=== PATIENT | male | born 1950 | race Caucasian/White ===

== ENCOUNTER 2017-07-30 13:51 | Inpatient (IN) | payer OTHER ==
[~2017-07-30] VITALS: Ht 167.6 cm; Wt 80.9 kg
--- NOTE | ~2017-07-30 | ST ---
[place], [place] EXERCISE STRESS TEST REPORT NAME: TIMOTHY WHITLOCK UNIT #: [id number] ROOM: 529 DOCTOR: FRIEDA SMITH MD BIRTHDATE: [birth year] DOS: 07/31/2017 LEXISCAN STRESS EKG REFERRING PHYSICIAN: Dr. Giron. INDICATION: Central chest pain. DESCRIPTION OF PROCEDURE: The patient underwent standard protocol Lexiscan stress EKG. The patient's baseline EKG has normal sinus rhythm with nonspecific ST-T wave changes. The patient's baseline heart rate is 69 with blood pressure 144/94. The patient achieved the maximum heart rate of 92 beats per minute with blood pressure 148/80. No chest pain was noted, no arrhythmias and no ischemic EKG changes. Please see separate report for perfusion scan result. FRIEDA SMITH MD CM:STRESS:EXERCISE STRESS TEST REPORT [id number] FRIEDA SMITH MD
[2017-07-30 13:51] VITALS: BP 174/106
[2017-07-30 14:19] LABS: BASO # 0.1 10*3/uL (0.0-0.1); BASO % 0.9 % (0.0-1.0); EOS # 0.2 10*3/uL (0.0-0.4); EOS % 1.8 % (1.0-4.0); HEMATOCRIT 58.1 % (42.0-52.0); LYMPH # 1.7 10*3/uL (1.3-4.4); LYMPH % 18.5 % (27.0-41.0); MEAN CELL VOLUME 94.5 fl (80.0-94.0); MEAN CORPUSCULAR HGB 33.7 pg (27.0-31.0); MEAN CORPUSCULAR HGB CONC 35.6 g/dl (33.0-37.0); MEAN PLATELET VOLUME 10.8 fl (9.6-12.3); MONO # 0.6 10*3/uL (0.1-1.0); MONO % 6.8 % (3.0-9.0); NEUT # 6.6 10*3/uL (2.3-7.9); NEUT % 71.7 % (47.0-73.0); PLATELET COUNT AUTOMATED 172 10*3/uL (130-400); RED BLOOD COUNT 6.15 10*6/uL (4.50-5.90); RED CELL DISTRI WIDTH 13.2 % (0-14.5); WHITE BLOOD COUNT 9.2 10*3/uL (4.8-10.8)
--- NOTE | 2017-07-30 14:21 | NUR ---
DE. GONSALEZ AWARE OF HGN 20.7
[2017-07-30 14:23] LABS: HEMOGLOBIN 20.7 g/dl (14.0-18.0)
[2017-07-30 14:34] LABS: ALBUMIN 4.1 gm/dl (3.1-4.5); ALKALINE PHOSPHATASE 82 U/L (45-117); BUN 11 mg/dl (7-24); CHLORIDE 107 mmol/L (98-107); LIPASE 113 U/L (73-393); POTASSIUM 3.9 mmol/L (3.5-5.1); SGOT/AST 18 IU/L (3-35); SGPT/ALT 19 U/L (12-78); SODIUM 139 mmol/L (136-145); TOTAL PROTEIN 8.1 gm/dL (6.4-8.2)
[2017-07-30 14:38] LABS: TROPONIN I < 0.015 ng/ml (<0.045)
[2017-07-30 15:07] LABS: ACT PARTIAL THROMBO TIME 27.9 SECONDS (20.8-31.5)
--- NOTE | 2017-07-30 15:09 | NUR ---
pt resting quietky, no distress noted, pt denies any chest pain or sob. nsr via monitoring tech in the 60's. will continue to monitor.
[2017-07-30 15:58] VITALS: BP 150/85
--- NOTE | 2017-07-30 16:14 | NUR ---
A 67, admitted to 5E, under the services of APPLE Roper DO with a diagnosis of CHEST PAIN. Chief complaint is CHEST PAIN. Patient arrived via ambulatory from ER. Monitor applied. Initial assessment completed. Vital signs taken and recorded. APPLE ROPER DO notified of admission to the unit. Orders received. See assessment for past medical history, medications and allergies. Patient and/or family oriented to unit. visitation policy reviewed. Clothing/patient valuable form completed. TEJA SARKAR
[2017-07-30] MEDS ORDERED: LOSARTAN POTAS100 M1 PO (16:45)
[2017-07-30] MEDS ORDERED: ASPIRIN ADULT L81 M1 PO (16:45)
[2017-07-30] MEDS ORDERED: NORVASC5 MG PO (16:46)
--- NOTE | 2017-07-30 16:46 | NUR ---
PT REFUSED FLU SHOT ON ADMISSION, WILL RECONSIDER ON DISCHARGE
--- NOTE | 2017-07-30 17:32 | NUR ---
CONSULT CALLED TO , NEW ORDER TO KEEP PT NPO AFTER MN, AND CARDIOLOGY WILL SEE IN THE AM
[2017-07-30 20:00] VITALS: BP 167/94
[2017-07-30 22:01] VITALS: BP 144/84
[2017-07-31] VITALS: BP 115/59; BP 115/74
--- NOTE | 2017-07-31 03:10 | NUR ---
24 HR chart check completed.
[2017-07-31 06:37] LABS: BASO # 0.1 10*3/uL (0.0-0.1); BASO % 0.9 % (0.0-1.0); EOS # 0.4 10*3/uL (0.0-0.4); EOS % 4.4 % (1.0-4.0); HEMATOCRIT 55.9 % (42.0-52.0); HEMOGLOBIN 19.5 g/dl (14.0-18.0); LYMPH # 1.9 10*3/uL (1.3-4.4); MEAN CELL VOLUME 93.6 fl (80.0-94.0); MEAN CORPUSCULAR HGB 32.7 pg (27.0-31.0); MEAN CORPUSCULAR HGB CONC 34.9 g/dl (33.0-37.0); MEAN PLATELET VOLUME 11.5 fl (9.6-12.3); MONO # 0.6 10*3/uL (0.1-1.0); MONO % 6.8 % (3.0-9.0); NEUT # 5.7 10*3/uL (2.3-7.9); NEUT % 65.7 % (47.0-73.0); PLATELET COUNT AUTOMATED 163 10*3/uL (130-400); RED BLOOD COUNT 5.97 10*6/uL (4.50-5.90); WHITE BLOOD COUNT 8.6 10*3/uL (4.8-10.8)
[2017-07-31 07:04] LABS: BUN 12 mg/dl (7-24); CHLORIDE 106 mmol/L (98-107); CHOLESTEROL 136 mg/dL (<200); CREATININE 0.82 mg/dL (0.70-1.30); HDL CHOLESTEROL 47 mg/dl (40-60); LDL CHOLESTEROL 73 mg/dL (9-159); PHOSPHOROUS 3.3 mg/dL (2.5-4.9); POTASSIUM 3.7 mmol/L (3.5-5.1); SODIUM 140 mmol/L (136-145); TRIGLYCERIDES 79 mg/dl (<150); VLDL CHOLESTEROL 16 mg/dL (6-40)
--- NOTE | 2017-07-31 07:30 | NUR ---
ASSUMED CARE OF PT AT THIS TIME, RESPS EASY AND NONLABORED CALL LIGHT WITH IN REACH
[2017-07-31 07:53] LABS: VITAMIN D, 25-HYDROXY 24.4 ng/mL (30-100)
[2017-07-31 08:00] VITALS: BP 159/89
--- NOTE | 2017-07-31 08:30 | NUR ---
Business Management Specialist in to talk to patient. Patient states lives at home with his . There are 0 steps in the home. Physician: Dr. Cain Sparks Pharmacy: print all scripts, he gets them filled by the [place] Home health services: none Patient's level of ADLs: INDEPENDENT Patient has working utilities: yes DME: nebulizer Follow-up physician's appointment after d/c: will be made by hospitalist nurse director upon discharge Does patient want to access PORTAL?: no Discharge plan discussed with patient. He lives at home with his . He drives and is independent in his ADLs and ambulation. When medically stable he will be discharged to home. GRISELDA EPPS
--- NOTE | 2017-07-31 12:05 | NUR ---
INFORMED CONSENT SIGNED FOR LEXISCAN STRESS TEST WITH DR. SMIHT. RESTING EKG NSR, HR 69, BP 144/94. PULSE OX 100% AND LUNGS CLEAR. COMPLETED ONE MINUTE OF LEXISCAN PROTOCOL RECEIVING LEXISCAN 0.4MG OVER 10 SECONDS. NO ARRHYTHMIAS OR ST CHANGES NOTED. PT C/O WARM FEELING. LAST RECOVERY HR 85, BP 136/80. WAITING NUCLEAR SCANNING IN STABLE CONDITION.
[2017-07-31] MEDS ORDERED: VITAMIN D-32000 UNIT PO (16:28)
--- NOTE | 2017-07-31 16:48 | NUR ---
Discharge instructions reviewed with patient/family. Patient receptive and verbalizes understanding. Follow-up care arranged. Written instructions given to patient/family. TEJA SARKAR
== END 2017-07-31 16:48 | disposition home or self-care (01) | DRG 391 ==
LOC: ED 13:51 → 5E 15:27 → EDHOLD 15:27 → 5E 15:37
PROVIDERS: Emergency Medicine; Internal Medicine Nephrology; ADMIT Internal Medicine
PROC: 4A02XM4 Measurement of Cardiac Total Activity, External Approach (ICD-10-PCS; principal; 2017-07-31)
PROC: 3E073KZ Introduction of Other Diagnostic Substance into Coronary Artery, Percutaneous Approach (ICD-10-PCS; principal; 2017-07-31)
DX: K21.9 Gastro-esophageal reflux disease without esophagitis (principal); J18.9 Pneumonia, unspecified organism; J44.0 Chronic obstructive pulmonary disease with (acute) lower respiratory infection; I10 Essential (primary) hypertension; R07.89 Other chest pain; F17.200 Nicotine dependence, unspecified, uncomplicated; D45 Polycythemia vera; M15.9 Polyosteoarthritis, unspecified; Z79.82 Long term (current) use of aspirin; Z88.5 Allergy status to narcotic agent; Z79.899 Other long term (current) drug therapy; Z71.6 Tobacco abuse counseling; Z82.49 Family history of ischemic heart disease and other diseases of the circulatory system; Z72.89 Other problems related to lifestyle; Z80.0 Family history of malignant neoplasm of digestive organs

== ENCOUNTER → 2017-11-19 | Outpatient (CLI) | payer OTHER ==
[~2017-11-19] MED LIST: ASPIRIN ADULT L81 M1 PO; LOSARTAN POTAS100 M1 PO; NORVASC5 MG PO; VITAMIN D-32000 UNIT PO
== END | disposition home or self-care (01) ==
LOC: RESCLI 00:33
DX: D45 Polycythemia vera (principal); I10 Essential (primary) hypertension; E55.9 Vitamin D deficiency, unspecified; J44.9 Chronic obstructive pulmonary disease, unspecified; K21.9 Gastro-esophageal reflux disease without esophagitis; F17.210 Nicotine dependence, cigarettes, uncomplicated; Z71.6 Tobacco abuse counseling

== ENCOUNTER → 2017-12-17 | Outpatient (CLI) | payer OTHER | END | disposition home or self-care (01) | LOC: RESCLI 01:51 | DX: I10 Essential (primary) hypertension (principal); D45 Polycythemia vera ==

== ENCOUNTER → 2018-01-09 | Outpatient (CLI) | payer OTHER ==
[2018-01-09 10:08] LABS: BASO # 0.1 10*3/uL (0.0-0.1); BASO % 0.8 % (0.0-1.0); EOS # 0.3 10*3/uL (0.0-0.4); EOS % 5.1 % (1.0-4.0); HEMATOCRIT 57.8 % (42.0-52.0); HEMOGLOBIN 19.8 g/dl (14.0-18.0); LYMPH # 1.5 10*3/uL (1.3-4.4); LYMPH % 22.5 % (27.0-41.0); MEAN CELL VOLUME 96.7 fl (80.0-94.0); MEAN CORPUSCULAR HGB 33.1 pg (27.0-31.0); MEAN CORPUSCULAR HGB CONC 34.3 g/dl (33.0-37.0); MEAN PLATELET VOLUME 10.8 fl (9.6-12.3); MONO # 0.5 10*3/uL (0.1-1.0); MONO % 6.9 % (3.0-9.0); NEUT # 4.2 10*3/uL (2.3-7.9); NEUT % 64.2 % (47.0-73.0); PLATELET COUNT AUTOMATED 203 10*3/uL (130-400); RED BLOOD COUNT 5.98 10*6/uL (4.50-5.90); RED CELL DISTRI WIDTH 13.8 % (0-14.5); WHITE BLOOD COUNT 6.5 10*3/uL (4.8-10.8)
[2018-01-09 11:20] LABS: VITAMIN D, 25-HYDROXY 33.6 ng/mL (30-100)
[2018-01-09 11:21] LABS: FERRITIN 39.7 ng/mL (22.0-322.0)
== END | disposition home or self-care (01) ==
LOC: LAB 09:45
PROVIDERS: Student in an Organized Health Care Education/Training Program
DX: D45 Polycythemia vera (principal); E55.9 Vitamin D deficiency, unspecified

== ENCOUNTER → 2018-01-15 | Outpatient (CLI) | payer OTHER | END | disposition home or self-care (01) | LOC: RESCLI 04:30 | DX: I10 Essential (primary) hypertension (principal); D45 Polycythemia vera; E55.9 Vitamin D deficiency, unspecified; J44.9 Chronic obstructive pulmonary disease, unspecified; K21.9 Gastro-esophageal reflux disease without esophagitis; F51.02 Adjustment insomnia; F17.210 Nicotine dependence, cigarettes, uncomplicated; Z71.6 Tobacco abuse counseling ==

== ENCOUNTER → 2018-01-17 | Outpatient (CLI) | payer OTHER ==
[2018-01-17 08:49] VITALS: BP 105/74
[2018-01-17 09:15] VITALS: BP 76/30
[2018-01-17 09:28] VITALS: BP 109/80
== END | disposition home or self-care (01) ==
LOC: PHLEB 03:41
DX: D45 Polycythemia vera (principal)

== ENCOUNTER → 2018-03-22 | Outpatient (CLI) | payer OTHER | END | disposition home or self-care (01) | LOC: RESCLI 02:29 | DX: I10 Essential (primary) hypertension (principal); D45 Polycythemia vera; F51.02 Adjustment insomnia; E55.9 Vitamin D deficiency, unspecified; J44.9 Chronic obstructive pulmonary disease, unspecified; K21.9 Gastro-esophageal reflux disease without esophagitis; Z72.0 Tobacco use; Z79.899 Other long term (current) drug therapy; Z88.8 Allergy status to other drugs, medicaments and biological substances; Z79.82 Long term (current) use of aspirin; Z71.6 Tobacco abuse counseling ==

== ENCOUNTER → 2018-03-27 | Outpatient (CLI) | payer OTHER ==
[2018-03-27 10:53] LABS: BASO % 0.7 % (0.0-1.0); EOS # 0.2 10*3/uL (0.0-0.4); EOS % 3.9 % (1.0-4.0); HEMATOCRIT 56.7 % (42.0-52.0); HEMOGLOBIN 19.3 g/dl (14.0-18.0); LYMPH # 1.2 10*3/uL (1.3-4.4); LYMPH % 20.2 % (27.0-41.0); MEAN CELL VOLUME 95.6 fl (80.0-94.0); MEAN CORPUSCULAR HGB 32.5 pg (27.0-31.0); MEAN PLATELET VOLUME 11.6 fl (9.6-12.3); MONO # 0.5 10*3/uL (0.1-1.0); MONO % 8.1 % (3.0-9.0); NEUT # 3.9 10*3/uL (2.3-7.9); NEUT % 66.9 % (47.0-73.0); PLATELET COUNT AUTOMATED 165 10*3/uL (130-400); RED BLOOD COUNT 5.93 10*6/uL (4.50-5.90); RED CELL DISTRI WIDTH 13.2 % (0-14.5); WHITE BLOOD COUNT 5.8 10*3/uL (4.8-10.8)
[2018-03-27 11:58] LABS: FERRITIN 45.9 ng/mL (22.0-322.0)
== END | disposition home or self-care (01) ==
LOC: LAB 09:52
PROVIDERS: Student in an Organized Health Care Education/Training Program
DX: E55.9 Vitamin D deficiency, unspecified (principal); D45 Polycythemia vera

== ENCOUNTER → 2018-05-01 | Outpatient (CLI) | payer OTHER | END | disposition home or self-care (01) | LOC: US 09:48 | DX: I65.23 Occlusion and stenosis of bilateral carotid arteries (principal); E78.5 Hyperlipidemia, unspecified; F17.210 Nicotine dependence, cigarettes, uncomplicated ==

== ENCOUNTER → 2018-05-03 | Outpatient (CLI) | payer OTHER ==
[2018-05-03 10:51] LABS: HEMATOCRIT 56.4 % (42.0-52.0); HEMOGLOBIN 19.3 g/dl (14.0-18.0)
== END | disposition home or self-care (01) ==
LOC: RESCLI 10:06
PROVIDERS: Student in an Organized Health Care Education/Training Program
DX: K21.9 Gastro-esophageal reflux disease without esophagitis (principal); J44.9 Chronic obstructive pulmonary disease, unspecified; G47.9 Sleep disorder, unspecified; S91.209A Unspecified open wound of unspecified toe(s) with damage to nail, initial encounter; E55.9 Vitamin D deficiency, unspecified; I10 Essential (primary) hypertension; D45 Polycythemia vera; F17.200 Nicotine dependence, unspecified, uncomplicated; Z71.6 Tobacco abuse counseling; Z79.899 Other long term (current) drug therapy; Z79.82 Long term (current) use of aspirin; Z88.8 Allergy status to other drugs, medicaments and biological substances; X58.XXXA Exposure to other specified factors, initial encounter; Y93.89 Activity, other specified; Y92.89 Other specified places as the place of occurrence of the external cause; Y99.8 Other external cause status

== ENCOUNTER → 2018-05-06 | Outpatient (CLI) | payer OTHER ==
[2018-05-06 09:45] VITALS: BP 174/98
[2018-05-06 10:20] VITALS: BP 166/86
== END | disposition home or self-care (01) ==
LOC: PHLEB 10:00
DX: D45 Polycythemia vera (principal); Z88.5 Allergy status to narcotic agent

== ENCOUNTER → 2018-05-21 | Outpatient (CLI) | payer OTHER | END | disposition home or self-care (01) | LOC: RESCLI 04:17 | DX: I10 Essential (primary) hypertension (principal); J44.9 Chronic obstructive pulmonary disease, unspecified; D45 Polycythemia vera; K21.9 Gastro-esophageal reflux disease without esophagitis; F51.02 Adjustment insomnia; F17.210 Nicotine dependence, cigarettes, uncomplicated; Z71.6 Tobacco abuse counseling; Z79.899 Other long term (current) drug therapy; Z79.82 Long term (current) use of aspirin ==

== ENCOUNTER → 2018-05-28 | Outpatient (CLI) | payer OTHER ==
[2018-05-28 09:30] VITALS: BP 158/97
[2018-05-28 09:52] LABS: HEMATOCRIT 54.7 % (42.0-52.0); HEMOGLOBIN 18.5 g/dl (14.0-18.0)
[2018-05-28 10:15] VITALS: BP 151/87
== END | disposition home or self-care (01) ==
LOC: PHLEB 02:05
PROVIDERS: Student in an Organized Health Care Education/Training Program
DX: D45 Polycythemia vera (principal)

== ENCOUNTER → 2018-06-05 | Outpatient (CLI) | payer OTHER ==
[2018-06-05 09:14] VITALS: BP 143/73
[2018-06-05 09:30] VITALS: BP 126/81
== END | disposition home or self-care (01) ==
LOC: PHLEB 06-04 09:30
DX: D45 Polycythemia vera (principal)

== ENCOUNTER → 2018-07-25 | Outpatient (CLI) | payer OTHER | END | disposition home or self-care (01) | LOC: RESCLI 04:08 | DX: J44.9 Chronic obstructive pulmonary disease, unspecified (principal); I10 Essential (primary) hypertension; K21.9 Gastro-esophageal reflux disease without esophagitis; G47.9 Sleep disorder, unspecified; E55.9 Vitamin D deficiency, unspecified; D45 Polycythemia vera; R31.29 Other microscopic hematuria; B35.1 Tinea unguium; F17.200 Nicotine dependence, unspecified, uncomplicated; Z79.899 Other long term (current) drug therapy ==

== ENCOUNTER 2018-11-08 15:24 | Inpatient (IN) | payer OTHER ==
[~2018-11-08] VITALS: Ht 177.8 cm; Wt 73.9 kg
[~2018-11-08 15:24] MED LIST changes: -AUGMENTIN 875-875 MG PO; -DEPAKOTE ER500 MG PO; -DULOXETINE HCL30 MG PO
[2018-11-08 15:25] VITALS: BP 147/81
[2018-11-08 16:08] VITALS: BP 140/78
[2018-11-08 16:43] LABS: BASO % 0.8 % (0.0-1.0); EOS # 0.1 10*3/uL (0.0-0.4); EOS % 0.9 % (1.0-4.0); HEMATOCRIT 47.3 % (42.0-52.0); HEMOGLOBIN 16.5 g/dl (14.0-18.0); LYMPH # 0.9 10*3/uL (1.3-4.4); LYMPH % 16.4 % (27.0-41.0); MEAN CELL VOLUME 93.3 fl (80.0-94.0); MEAN CORPUSCULAR HGB 32.5 pg (27.0-31.0); MEAN CORPUSCULAR HGB CONC 34.9 g/dl (33.0-37.0); MEAN PLATELET VOLUME 10.8 fl (9.6-12.3); MONO # 0.6 10*3/uL (0.1-1.0); MONO % 11.3 % (3.0-9.0); NEUT # 3.7 10*3/uL (2.3-7.9); NEUT % 70.4 % (47.0-73.0); PLATELET COUNT AUTOMATED 136 10*3/uL (130-400); RED BLOOD COUNT 5.07 10*6/uL (4.50-5.90); RED CELL DISTRI WIDTH 15.2 % (0-14.5); WHITE BLOOD COUNT 5.3 10*3/uL (4.8-10.8)
[2018-11-08 17:13] LABS: ALBUMIN 3.1 gm/dl (3.1-4.5); ALKALINE PHOSPHATASE 61 U/L (45-117); BUN 10 mg/dl (7-24); CHLORIDE 107 mmol/L (98-107); CREATININE 0.79 mg/dL (0.70-1.30); LIPASE 60 U/L (73-393); POTASSIUM 3.4 mmol/L (3.5-5.1); SGOT/AST 31 IU/L (3-35); SGPT/ALT 30 U/L (12-78); SODIUM 139 mmol/L (136-145)
[2018-11-08] MEDS ORDERED: DEPAKOTE ER500 MG PO (17:33)
[2018-11-08] MEDS ORDERED: DULOXETINE HCL30 MG PO (17:34)
--- NOTE | 2018-11-08 17:54 | NUR ---
DR. COX NOTIFIED OF CONSULT.
[2018-11-08 20:00] VITALS: BP 157/93
--- NOTE | 2018-11-08 22:27 | NUR ---
RESTORIL GIVEN FOR INSOMNIA. WILL REASSESS.
[2018-11-09] VITALS: BP 137/70
[2018-11-09 07:23] LABS: BASO % 0.9 % (0.0-1.0); EOS # 0.2 10*3/uL (0.0-0.4); EOS % 4.4 % (1.0-4.0); HEMOGLOBIN 15.6 g/dl (14.0-18.0); LYMPH # 1.1 10*3/uL (1.3-4.4); LYMPH % 23.2 % (27.0-41.0); MEAN CELL VOLUME 95.3 fl (80.0-94.0); MEAN CORPUSCULAR HGB 31.6 pg (27.0-31.0); MEAN CORPUSCULAR HGB CONC 33.2 g/dl (33.0-37.0); MEAN PLATELET VOLUME 10.8 fl (9.6-12.3); MONO # 0.6 10*3/uL (0.1-1.0); NEUT # 2.7 10*3/uL (2.3-7.9); NEUT % 59.1 % (47.0-73.0); PLATELET COUNT AUTOMATED 123 10*3/uL (130-400); RED BLOOD COUNT 4.93 10*6/uL (4.50-5.90); RED CELL DISTRI WIDTH 15.1 % (0-14.5); WHITE BLOOD COUNT 4.6 10*3/uL (4.8-10.8)
--- NOTE | 2018-11-09 07:44 | NUR ---
Shift chart check completed.
[2018-11-09 07:47] LABS: ALBUMIN 2.9 gm/dl (3.1-4.5); ALKALINE PHOSPHATASE 56 U/L (45-117); BUN 7 mg/dl (7-24); CHLORIDE 109 mmol/L (98-107); PHOSPHOROUS 3.5 mg/dL (2.5-4.9); SGOT/AST 32 IU/L (3-35); SGPT/ALT 28 U/L (12-78); SODIUM 142 mmol/L (136-145); TOTAL PROTEIN 6.5 gm/dL (6.4-8.2)
[2018-11-09 08:23] VITALS: BP 153/86
[2018-11-09 11:55] VITALS: BP 162/83
[2018-11-09] MEDS ORDERED: AUGMENTIN 875-875 MG PO (13:56)
--- NOTE | 2018-11-09 15:09 | NUR ---
Discharge instructions reviewed with patient. Patient receptive and verbalizes understanding. Follow-up care understood. Written instructions given to patient. iv removed, dressing applied. pt given new rx, understands to take to pharmacy to have filled. understands discharge instructions, no questions at this time. pt declined wheelchair for discharge UMER WIGGINS
== END 2018-11-09 15:09 | disposition home or self-care (01) | DRG 392 ==
LOC: ED 15:24 → EDHOLD 16:04 → 4E 16:26
PROVIDERS: Emergency Medicine; Internal Medicine; ADMIT Internal Medicine
DX: K57.20 Diverticulitis of large intestine with perforation and abscess without bleeding (principal); I50.32 Chronic diastolic (congestive) heart failure; J44.9 Chronic obstructive pulmonary disease, unspecified; I11.0 Hypertensive heart disease with heart failure; M19.90 Unspecified osteoarthritis, unspecified site; E87.6 Hypokalemia; Z71.6 Tobacco abuse counseling; Z72.0 Tobacco use; Z88.6 Allergy status to analgesic agent; Z79.82 Long term (current) use of aspirin; Z79.899 Other long term (current) drug therapy; Z80.8 Family history of malignant neoplasm of other organs or systems

== ENCOUNTER → 2018-11-08 | Outpatient (CLI) | payer OTHER ==
[~2018-11-08] MED LIST changes: +AUGMENTIN 875-875 MG PO; +DEPAKOTE ER500 MG PO; +DULOXETINE HCL30 MG PO; +OMEPRAZOLE40 MG PO
== END | disposition home or self-care (01) ==
LOC: RESCLI 03:42
DX: I10 Essential (primary) hypertension (principal); E55.9 Vitamin D deficiency, unspecified; J44.9 Chronic obstructive pulmonary disease, unspecified; R31.9 Hematuria, unspecified; D45 Polycythemia vera; K21.9 Gastro-esophageal reflux disease without esophagitis; G47.9 Sleep disorder, unspecified; B19.20 Unspecified viral hepatitis C without hepatic coma; K57.92 Diverticulitis of intestine, part unspecified, without perforation or abscess without bleeding; K81.0 Acute cholecystitis

== ENCOUNTER → 2018-12-12 | Day surgery (SDC) | payer OTHER ==
[~2018-12-12] VITALS: Ht 167.6 cm; Wt 74.8 kg
[~2018-12-12] MED LIST changes: +AUGMENTIN 875-875 MG PO; +DEPAKOTE ER500 MG PO; +DULOXETINE HCL30 MG PO
--- NOTE | ~2018-12-12 | PROC NOTE ---
[place], [place] PROCEDURE NOTE NAME: TIMOTHY WHITLOCK [facility] #: [id number] UNIT #: [id number] ROOM: DOCTOR: THOMAS CORDERO MD BIRTHDATE: [birth year] DOS: 12/12/2018 PREOPERATIVE DIAGNOSES: History of diverticulitis, history of colon polyps. POSTOPERATIVE DIAGNOSES: Diverticulitis, diverticulosis (sigmoid colon). PROCEDURE: Flexible sigmoidoscopy. ENDOSCOPIST: Thomas Cordero MD TECHNICAL SOLUTIONS CONSULTANT: CHERYL. ANESTHESIA: MAC. INDICATIONS: This is a 68-year-old gentleman who was admitted recently with history of diverticulitis, who is here for a colonoscopy. He also has a previous history of colon polyps. The procedure and its complications were explained to the patient in detail preoperatively. Complications that were discussed included but were not limited to bleeding, missed lesions, colon perforation and he agreed to proceed. DESCRIPTION OF PROCEDURE: After identifying the patient, the patient was brought to the endoscopy suite and placed in the left lateral position. After IV sedation was administered, a time-out procedure was called. A digital rectal exam was performed, which was within normal limits. An adult colonoscope was now introduced into the anal canal and advanced sequentially into the rectum and sigmoid colon up to 30 cm. There was found to be inflamed mucosa in the entirety of the sigmoid colon. Despite multiple attempts, the colon could not be negotiated beyond this point and the scope was then withdrawn and the patient was brought back to the recovery room. In addition to the diverticulitis, there was also diverticulosis that was visualized. No polyps were visualized until 30 cm from the anal verge. The patient was brought back to the recovery room in a stable fashion. Based on this finding, the patient is recommended to have another colonoscopy in the next few months after the inflammation has settled down. These will be discussed with the patient in the recovery room and in the office. Thomas Cordero MD CM:PROCNOTE:PROCEDURE NOTE [id number] THOMAS CORDERO MD
[2018-12-12 06:30] VITALS: BP 143/82
[2018-12-12 07:47] VITALS: BP 133/83
[2018-12-12 08:02] VITALS: BP 142/87
[2018-12-12 08:17] VITALS: BP 144/88
== END | disposition home or self-care (01) ==
LOC: SDC 12-09 08:45
DX: K57.32 Diverticulitis of large intestine without perforation or abscess without bleeding (principal); K57.30 Diverticulosis of large intestine without perforation or abscess without bleeding; I10 Essential (primary) hypertension; K21.9 Gastro-esophageal reflux disease without esophagitis; M19.90 Unspecified osteoarthritis, unspecified site; J43.9 Emphysema, unspecified; F17.210 Nicotine dependence, cigarettes, uncomplicated; D45 Polycythemia vera; Z88.6 Allergy status to analgesic agent; Z88.8 Allergy status to other drugs, medicaments and biological substances; Z98.890 Other specified postprocedural states; Z72.89 Other problems related to lifestyle; Z86.19 Personal history of other infectious and parasitic diseases; Z86.010 Personal history of colon polyps; Z79.82 Long term (current) use of aspirin; Z87.442 Personal history of urinary calculi; Z82.49 Family history of ischemic heart disease and other diseases of the circulatory system

== ENCOUNTER → 2020-10-13 | Outpatient (CLI) | payer OTHER | END | disposition home or self-care (01) | LOC: CT 10-04 13:00 | PROVIDERS: ATTEND Nurse Practitioner Family | DX: Z12.2 Encounter for screening for malignant neoplasm of respiratory organs (principal); R91.8 Other nonspecific abnormal finding of lung field; I25.10 Atherosclerotic heart disease of native coronary artery without angina pectoris; Z72.0 Tobacco use ==

== ENCOUNTER 2022-02-17 12:13 | Emergency (ER) | payer OTHER ==
[~2022-02-17] VITALS: Wt 72.6 kg
[2022-02-17 12:48] LABS: BASO % 0.6 % (0.0-1.0); EOS # 0.1 10*3/uL (0.0-0.4); HEMATOCRIT 44.3 % (42.0-52.0); LYMPH # 0.8 10*3/uL (1.3-4.4); LYMPH % 15.6 % (27.0-41.0); MEAN CELL VOLUME 95.3 fl (80.0-94.0); MEAN CORPUSCULAR HGB 34.4 pg (27.0-31.0); MEAN CORPUSCULAR HGB CONC 36.1 g/dl (33.0-37.0); MEAN PLATELET VOLUME 11.2 fl (9.6-12.3); MONO # 0.5 10*3/uL (0.1-1.0); MONO % 10.3 % (3.0-9.0); NEUT # 3.5 10*3/uL (2.3-7.9); NEUT % 72.1 % (47.0-73.0); PLATELET COUNT AUTOMATED 154 10*3/uL (130-400); RED BLOOD COUNT 4.65 10*6/uL (4.50-5.90); RED CELL DISTRI WIDTH 12.6 % (0-14.5); WHITE BLOOD COUNT 4.9 10*3/uL (4.8-10.8)
[2022-02-17 13:04] LABS: ALKALINE PHOSPHATASE 41 U/L (45-117); BUN 16 mg/dl (7-24); CHLORIDE 107 mmol/L (98-107); CREATININE 0.91 mg/dL (0.70-1.30); POTASSIUM 4.1 mmol/L (3.5-5.1); SGOT/AST 56 IU/L (3-35); SGPT/ALT 37 U/L (12-78); SODIUM 139 mmol/L (136-145); TOTAL PROTEIN 7.4 gm/dL (6.4-8.2)
[2022-02-17 13:57] VITALS: BP 170/90
[2022-02-17] MEDS ORDERED: MEDROL DOSEPAK4 MG PO (16:03)
[2022-02-17] MEDS ORDERED: VENTOLIN 02.5 MG/3 M INH (16:03)
[2022-02-17] MEDS ORDERED: METHOCARBAMOL750 M1 PO (16:04)
[2022-02-17] MEDS ORDERED: AVPAK AZITHROM250 M1 PO (16:04)
== END 2022-02-17 16:13 | disposition home or self-care (01) ==
LOC: ED 12:13
PROVIDERS: Emergency Medicine
DX: J44.1 Chronic obstructive pulmonary disease with (acute) exacerbation (principal); Z88.8 Allergy status to other drugs, medicaments and biological substances; Z79.899 Other long term (current) drug therapy; Z79.82 Long term (current) use of aspirin; Z90.89 Acquired absence of other organs; Z98.890 Other specified postprocedural states; F17.200 Nicotine dependence, unspecified, uncomplicated

== ENCOUNTER 2022-08-30 20:45 | Emergency (ER) | payer OTHER ==
[~2022-08-30] VITALS: Ht 167.6 cm; Wt 74.8 kg
[~2022-08-30 20:45] MED LIST changes: +AVPAK AZITHROM250 M1 PO; +MEDROL DOSEPAK4 MG PO; +METHOCARBAMOL750 M1 PO; +VENTOLIN 02.5 MG/3 M INH
[2022-08-30 20:55] VITALS: BP 168/90
== END 2022-08-30 21:51 | disposition home or self-care (01) ==
LOC: ED 20:45
DX: S63.255A Unspecified dislocation of left ring finger, initial encounter (principal); Z88.5 Allergy status to narcotic agent; Z98.890 Other specified postprocedural states; Z90.89 Acquired absence of other organs; Z87.891 Personal history of nicotine dependence; W18.30XA Fall on same level, unspecified, initial encounter; Y93.89 Activity, other specified; Y92.89 Other specified places as the place of occurrence of the external cause; Y99.8 Other external cause status

== ENCOUNTER → 2023-09-10 | Outpatient (CLI) | payer OTHER ==
[~2023-09-10] MED LIST changes: +ASPIRIN CHEWABL81 MG PO; +HYDR25T PO; +MIRALAX POWDER17 G1 PO; +OMEPRAZOLE MAGN20 MG PO; +TRAZODONE HYDR300 MG PO; +VANCOMYCIN HCL125 MG PO
[2023-09-10 10:36] LABS: BASO % 0.1 % (0.0-1.0); EOS % 0.2 % (1.0-4.0); HEMATOCRIT 50.5 % (42.0-52.0); LYMPH # 0.4 10*3/uL (1.3-4.4); LYMPH % 4.4 % (27.0-41.0); MEAN CELL VOLUME 99.4 fl (80.0-94.0); MEAN CORPUSCULAR HGB 32.9 pg (27.0-31.0); MEAN CORPUSCULAR HGB CONC 33.1 g/dl (33.0-37.0); MONO # 0.6 10*3/uL (0.1-1.0); MONO % 6.1 % (3.0-9.0); NEUT # 8.6 10*3/uL (2.3-7.9); NEUT % 88.8 % (47.0-73.0); PLATELET COUNT AUTOMATED 165 10*3/uL (130-400); RED BLOOD COUNT 5.08 10*6/uL (4.50-5.90); RED CELL DISTRI WIDTH 14.7 % (0-14.5); WHITE BLOOD COUNT 9.7 10*3/uL (4.8-10.8)
[2023-09-11 08:09] LABS: IMMUNOGLOBULIN G, QNT 1131 mg/dL (603-1613); IMMUNOGLOBULIN M, QNT 91 mg/dL (15-143)
[2023-09-11 12:08] LABS: ANTI-RNP ANTIBODIES <0.2 AI (0.0-0.9); SJOGREN ANTI-SS-A 1.3 AI (0.0-0.9); SJOREN AB, ANTI-SS-B 7.8 AI (0.0-0.9)
[2023-09-12 05:07] LABS: ANTI-DNASE B STREP AB 164 U/mL (0-120)
== END ==
LOC: LAB 09:35
PROVIDERS: ATTEND Allergy & Immunology
DX: M35.9 Systemic involvement of connective tissue, unspecified (principal); L90.9 Atrophic disorder of skin, unspecified; L50.8 Other urticaria

== ENCOUNTER 2024-09-01 17:39 | Inpatient (IN) | payer OTHER ==
[~2024-09-01] VITALS: Ht 167.6 cm; Wt 66.0 kg
[~2024-09-01 17:39] MED LIST changes: +AMOX-CLAV 875-1 EACH PO; +LOSARTAN POTAS100 MG PO; +NORVASC10 MG PO
[2024-09-01] MEDS ORDERED: ACETAMINOPHEN 650 MG SUPP R PRN (17:55)
[2024-09-01] MEDS ORDERED: HYOSCYAMINE SULFATE PO PRN (17:55)
[2024-09-01] MEDS ORDERED: BISACODYL 10 MG SUPP R PRN (17:55)
[2024-09-01] MEDS ORDERED: Midazolam Hydrochloride 2 MG/2 ML VIAL IV PRN (17:55)
[2024-09-01] MEDS ORDERED: MORPHINE Sulfate 2 MG/ML SYR IV ONE (18:15)
[2024-09-01] MEDS ORDERED: MORPHINE Sulfate 100 MG in SODIUM CHLORIDE 0.9% 90 ML IV SCH (18:30)
== END 2024-09-01 23:32 | DRG 871 ==
LOC: ICCU 17:39
PROVIDERS: ADMIT Family Medicine; ATTEND Family Medicine
DX: A41.9 Sepsis, unspecified organism (principal); E43 Unspecified severe protein-calorie malnutrition; N17.0 Acute kidney failure with tubular necrosis; R65.21 Severe sepsis with septic shock; K85.90 Acute pancreatitis without necrosis or infection, unspecified; F32.2 Major depressive disorder, single episode, severe without psychotic features; E87.1 Hypo-osmolality and hyponatremia; R45.851 Suicidal ideations; K57.32 Diverticulitis of large intestine without perforation or abscess without bleeding; N40.0 Benign prostatic hyperplasia without lower urinary tract symptoms; I48.91 Unspecified atrial fibrillation; E83.51 Hypocalcemia; Z66 Do not resuscitate; F43.21 Adjustment disorder with depressed mood; J44.9 Chronic obstructive pulmonary disease, unspecified; I10 Essential (primary) hypertension; F17.210 Nicotine dependence, cigarettes, uncomplicated; Z71.6 Tobacco abuse counseling; Z68.23 Body mass index [BMI] 23.0-23.9, adult